=== PATIENT | male | born 1965 | race Caucasian/White ===

== ENCOUNTER → 2020-12-07 10:16 | Outpatient (CLI) | payer OTHER, SELFPAY | PROVIDERS: Visit Provider Internal Medicine Gastroenterology | DX: Z01.812 Encounter for preprocedural laboratory examination (principal); Z11.52 Encounter for screening for COVID-19; Z12.11 Encounter for screening for malignant neoplasm of colon | CPT/HCPCS: U0003 ==

== ENCOUNTER 2020-12-09 10:15 | Day surgery (SDC) | payer OTHER, SELFPAY ==
[2020-11-29 10:37] VITALS: BMI 26.4
[2020-12-09] VITALS (8 sets, daily range): BP systolic 97–140; BP diastolic 63–89; PULSE 94–109; RESP 18–20; TEMP 36.3–37.1; O2SAT 97–99
--- NOTE | 2020-12-09 10:58 | HMH.ANESCL ---
[facility] Anesthesia Checklist - Patient Identification Patient Identification: Arm Band - Structural Data Admitted From: Home Planned Operative Procedure/s: Colonoscopy Consent for Planned Operative Procedure(s) Verified: Yes - NPO Status Verified Time NPO: 00:00 - Airway Assessment C-Spine Mobility Assessed: Yes TMJ Mobility Assessed: Yes Dentition: Dentures-good fit - Neurological Assessment Level of Consciousness: Awake Hx Seizures: No Numbness or tingling in extremities: No - Anesthesia Plan Anesthesia Risk discussed: Yes Anesthesia Plan: Verified ASA Class: II Anesthesia Type: MAC [facility] History I have reviewed the patient's past medical history: Yes Medical History: Denies:: Cancer, Diabetes Mellitus Type 1, Diabetes Mellitus Type 2, Internal Pacemaker, MRSA *Have you ever received a pneumonia vaccine?: No *Have you received a flu vaccine this season?: No Anesthesia experience/problems:: None Laterality Cases: Bilateral: Tonsillectomy Other Surgeries: No: Pacemaker Amputation: No Fractures: No - *Social History Last grade of school completed: Some college Smoking Status: Current every day smoker Tobacco Type: cigarettes # Packs/Day (cigarettes): 1 Alcohol Intake: current Alcohol Intake Frequency:: holidays/special occasions only Substance Use Type: marijuana *Occupational Status:: employed Housing: house *Travel in the last 8 weeks: None Family Hx:: Adopted
--- NOTE | 2020-12-09 11:53 | HMH.PROC ---
[facility] Procedure Note Procedure Note:: Colonoscopy Procedure Report: Colonoscopy Endoscopist: Avni Herndon II, MD Referring physician: CHAU Riley Date of Procedure: December 09, 2020 Equipment: Olympus 190 variable stiffness pediatric colonoscope Sedation: MAC sedation Indication: Mr. Gonzalez is a 55-year-old gentleman who is here for diagnostic colonoscopy. He has had chronic longstanding constipation. More recently he has had episodic diverticulitis with some right-sided abdominal pain. He does have some intermittent but seldom lower abdominal pain. He also notes seldom hemorrhoidal bleeding. He reports no weight loss or family history of colon cancer. He does not know his family history since he is adopted. This is his first colonoscopy. Procedure: Prior to the procedure, a history and physical exam was performed, and patient's medications and allergies were reviewed. The risks, benefits and alternatives of the sedation and procedure were discussed with the patient. All questions were answered and informed consent was obtained. The patient was brought to the procedure room. Patient identification and proposed procedure were verified by the physician and the nurse. The patient was placed in a left lateral decubitus position and the scope was passed under direct vision. Throughout the procedure, the patient's blood pressure, pulse, and oxygen saturations were monitored continuously. The colonoscopy was accomplished without difficulty. The patient tolerated the procedure well. Findings: On digital rectal examination there was normal rectal tone. There were no external hemorrhoids. The prostate was 2+, smooth, soft, symmetric without nodules. The colonoscope was introduced through the anal canal to the rectum and advanced to the cecum. The ileocecal valve and appendiceal orifice were identified. The scope was advanced a short distance into the ileum which appeared grossly normal. The scope was then withdrawn into the colon. There were extensively scattered diverticuli throughout the colon but more predominantly in the descending and sigmoid colon. There were no other mucosal abnormalities identified. The rectum itself was normal. Upon retroflexion within the rectum there were grade 2 internal hemorrhoids. The preparation was fair throughout with Lawrence Preparation Score of 7 out of 9. The cecal time was 10 minutes. Impression: 1. Pandiverticulosis 2. Grade 2 internal hemorrhoids Plan: I would encourage dietary measures and fiber bowel regimen on a long-term daily maintenance basis. The patient will not require surveillance colonoscopy again for 10 years by ACS guidelines.
== END 2020-12-09 12:44 | disposition home or self-care (01) ==
LOC: OUTP 10:19
PROVIDERS: PCP Nurse Practitioner Family; Visit Provider Internal Medicine Gastroenterology
PROC: 0DJD8ZZ Inspection of Lower Intestinal Tract, Via Natural or Artificial Opening Endoscopic (ICD-10-PCS; CPT 45378; principal; 2020-12-09 11:30)
DX: K57.32 Diverticulitis of large intestine without perforation or abscess without bleeding (principal); K64.1 Second degree hemorrhoids; Z72.0 Tobacco use; J44.9 Chronic obstructive pulmonary disease, unspecified; Z79.82 Long term (current) use of aspirin
CPT/HCPCS: 45378; J2704

== ENCOUNTER 2021-03-16 09:38 | Outpatient (CLI) | payer OTHER, SELFPAY ==
[2021-03-16] VITALS (9 sets, daily range): BP systolic 128–144; BP diastolic 70–90; PULSE 78–113; RESP 14–16; TEMP 36.7–36.8; O2SAT 95–98
== END 2021-03-16 12:35 | disposition home or self-care (01) ==
PROVIDERS: PCP Nurse Practitioner Family; Visit Provider Nurse Practitioner Family
DX: U07.1 COVID-19 (principal); Z23 Encounter for immunization
CPT/HCPCS: 96365

== ENCOUNTER → 2022-05-21 13:59 | Outpatient (CLI) | payer OTHER, SELFPAY ==
[2022-05-21 14:27] LABS: Basophils # 0.1 K/mm3 (0-0.2); Basophils % 1.4 % (0.1-2.0); Eosinophils # 0.4 K/mm3 (0.0-0.4); Eosinophils % 3.7 % (0.1-12.0); Hematocrit 48.4 % (42.0-52.0); Hemoglobin 16.1 g/dL (14.1-18.0); Lymphocytes # 4.3 K/mm3 (0.7-4.5); Mean Corpuscular HGB Conc 33.3 g/dL (31.8-35.4); Mean Corpuscular Hemoglobin 29.9 pg (27.0-31.2); Mean Platelet Volume 9.3 fl (7.4-10.4); Monocytes # 0.6 K/mm3 (0.1-1.0); Monocytes % 6.2 % (1.7-9.3); Neutrophils # 4.6 K/mm3 (1.8-7.8); Neutrophils % 45.6 % (37.0-80.0); Platelet Count 224 K/mm3 (142-424); Red Blood Count 5.38 M/mm3 (4.60-6.20); Red Cell Distribution Width 14.2 % (11.5-17.5)
[2022-05-30 07:15] LABS: D001-IgE D pteronyssinus <0.10 kU/L (Class 0); D002-IgE D farinae <0.10 kU/L (Class 0); E001-IgE Cat Dander <0.10 kU/L (Class 0); E005-IgE Dog Dander <0.10 kU/L (Class 0); E072-IgE Mouse Urine <0.10 kU/L (Class 0); G002-IgE Bermuda Grass 0.15 kU/L (Class 0/I); G006-IgE Timothy Grass 0.12 kU/L (Class 0/I); I006-IgE Cockroach, German 0.46 kU/L (Class I); Immunoglobulin E, Total 76 IU/mL (6-495); M001-IgE Penicillium chrysogen <0.10 kU/L (Class 0); M002-IgE Cladosporium herbarum <0.10 kU/L (Class 0); M003-IgE Aspergillus fumigatus <0.10 kU/L (Class 0); M006-IgE Alternaria alternata <0.10 kU/L (Class 0); T001-IgE Maple/Box Elder <0.10 kU/L (Class 0); T003-IgE Common Silver Birch <0.10 kU/L (Class 0); T006-IgE Cedar, Mountain <0.10 kU/L (Class 0); T007-IgE Oak, White 0.12 kU/L (Class 0/I); T010-IgE Walnut 0.12 kU/L (Class 0/I); T011-IgE Maple Leaf Sycamore 0.13 kU/L (Class 0/I); T014-IgE Cottonwood <0.10 kU/L (Class 0); T015-IgE Ash, White <0.10 kU/L (Class 0); T022-IgE Pecan, Hickory <0.10 kU/L (Class 0); T070-IgE White Mulberry <0.10 kU/L (Class 0); W001-IgE Ragweed, Short 0.15 kU/L (Class 0/I); W011-IgE Thistle, Russian 0.26 kU/L (Class 0/I); W014-IgE Pigweed, Common 0.13 kU/L (Class 0/I); W018-IgE Sheep Sorrel 0.16 kU/L (Class 0/I)
== END ==
PROVIDERS: PCP Nurse Practitioner Family; Visit Provider Internal Medicine Pulmonary Disease
DX: J45.909 Unspecified asthma, uncomplicated (principal); J30.9 Allergic rhinitis, unspecified
CPT/HCPCS: 36415; 82785; 85025; 86003

== ENCOUNTER → 2022-06-18 12:38 | Outpatient (CLI) | payer OTHER, SELFPAY ==
--- NOTE | 2022-06-18 13:50 | PC.NURSE ---
PFT and 6 Minute Walk test completed without incident. Pt given Albuterol 0.083% given via HHN, per protocol, Pt tolerated tx well.
== END ==
PROVIDERS: PCP Nurse Practitioner Family; Visit Provider Internal Medicine Pulmonary Disease
DX: R06.09 Other forms of dyspnea (principal)
CPT/HCPCS: 94060; 94618; 94726; 94729

== ENCOUNTER → 2023-02-04 10:30 | Outpatient (CLI) | payer OTHER, SELFPAY ==
--- NOTE | 2023-02-04 10:30 | CT_ITS ---
FINAL REPORT CLINICAL HISTORY: lung cancer screening current smoker 1ppd x 45 years COMPARISON: 12/12/2021 FINDINGS: CT CHEST LOW DOSE SCREENING HISTORY: Screening exam for lung cancer. 57-year-old male, Current smoker, 45 pack year smoking history DOSE: CTDIvol: 2.9 mGy, DLP: 117.77 mGy*cm COMPARISON: 12/12/2021. TECHNIQUE: Axial CT without IV contrast administration using low dose protocol FINDINGS: No acute lung disease is present . No pulmonary lesions are seen suspicious for neoplasm. Moderate coronary artery calcifications are present. There are mild changes of emphysema and mild scarring bilaterally. There are multiple calcified granulomas identified. There is a 4 mm right lower lobe nodule, seen in axial image #53, stable. There is a 2 mm right lower lobe nodule, seen in image #58, also stable. There is a third 3 mm left lower lung field nodule, seen in image #58. No pleural or pericardial effusion is seen . No adenopathy or mass lesion is present . IMPRESSION: Multiple small less than 5 mm in size pulmonary nodules as described, all stable since the prior CT of December 2021. Moderate coronary artery calcifications. LUNG RADS CATEGORY 2 RECOMMENDATION: 12 month LDCT follow up Reviewed, Interpreted and Dictated by Richard Torres III, MD Transcribed by Gladys De Souza Authenticated and . [facility]
== END ==
PROVIDERS: PCP Nurse Practitioner Family; Visit Provider Internal Medicine Pulmonary Disease
DX: F17.210 Nicotine dependence, cigarettes, uncomplicated (principal)
CPT/HCPCS: 71271

== ENCOUNTER 2023-09-26 09:57 | Outpatient (CLI) | payer OTHER, SELFPAY ==
--- NOTE | 2023-09-26 09:57 | CT_ITS ---
FINAL REPORT TECHNIQUE: Axial CT images were performed from the lung bases through the iliac crests. Coronal and sagittal reformats were submitted.This study was performed with techniques to keep radiation doses as low as reasonably achievable (ALARA). Individualized dose reduction techniques using automated exposure control or adjustment of mA and/or kV according to the patient's size were employed. CLINICAL HISTORY: AAA COMPARISON: None FINDINGS: Exam is limited without the benefit of IV contrast. ABDOMEN: The lung bases are clear. The liver parenchyma is homogeneous. The gallbladder has been surgically resected. The spleen, pancreas, and adrenals are unremarkable. There is no evidence of nephrolithiasis or hydronephrosis. There is no mass or adenopathy. There is moderate diffuse plaque present in the abdominal aorta. The abdominal aorta measures up to 28 mm in greatest diameter, which is within normal limits. IMPRESSION: No evidence of abdominal aortic aneurysm. Abdominal aorta is within normal limits of size. Moderate plaque is present. Otherwise unremarkable CT of the upper abdomen. Reviewed, Interpreted and Dictated by Lee Ann Fontenot MD Transcribed by Gladys De Souza Authenticated and [facility]
--- NOTE | 2023-09-26 11:25 | CA_ITS ---
APPROVED REPORT EXAM: Comprehensive 2D, Doppler, and color-flow Echocardiogram Chin Strap Maker: Debbie Moore CRT Ht: 6 ft 1 in Wt: 212lbs BSA: 2.21 BP: 138/84 mmHg Indications: Chest Pain, COPD, AAA, smoker 2D Dimensions LA Volume 25.70 mL LA Volume Index 11.40 mL/m2 (M/F) 16-34 M-Mode Dimensions RVDd 2.77 cm (0.9-2.6) LA Diam 2.99 cm (1.9-4.0) LVDd 4.17 cm (3.5-5.7) LVDs 2.99 cm (3.5-5.7) IVSd 1.57 cm (0.6-1.1) PWd 1.02 cm (0.6-1.1) EF (Teich) 55.10% FS 28.30% EDV (Teich) 77.30 mL TAPSE 2.50 (<1.7) ESV (Teich) 34.70 mL LV Diastology E Decel Time 180 (160-240 msec) E/A Ratio 0.79 MED A' 14.00 cm/s LAT A' 11.00 cm/s Aortic Valve AO Peak GR. 6.80 mmHg Mitral Valve MV A Velocity 90.0 (40-130 cm/s) E/A Ratio 0.79 Pulmonary Valve PV Peak Velocity 94.0 (50-150 cm/s) Tricuspid Valve TR P. Velocity 183.00 cm/s RAP Estimate 10.00 mmHg RVSP 23.30 mmHg Left Ventricle The left ventricle is normal size. The left ventricular systolic function is normal. The left ventricular ejection fraction is within the normal range. There is normal left ventricular wall thickness. There is normal LV segmental wall motion. The left ventricular diastolic function is normal. LVEF is 55%. Right Ventricle The right ventricle is normal size. The right ventricular systolic function is normal. Atria The left atrium size is normal. The right atrium size is normal. There is no Doppler evidence of interatrial shunt. Aortic Valve The aortic valve opens well. There is no aortic valvular stenosis. No aortic regurgitation is present. Mitral Valve The mitral valve is normal in structure. No evidence of mitral valve stenosis. There is no mitral valve regurgitation noted. Tricuspid Valve The tricuspid valve leaflets are thin and pliable. Trace tricuspid regurgitation. There is insufficient TR jet to estimate RVSP. Pulmonic Valve The pulmonic valve is not well-visualized. Great Vessels The aortic root is not well-visualized. IVC is normal in size and collapses >50% with inspiration. Pericardium There is no pericardial effusion. Other Information Study Quality: Technically Difficult Conclusion Technically difficult study due to poor acoustic windows. Normal biventricular systolic function. No significant valvular stenosis or regurgitation. Electronically signed by : Joanne Lackey MD 09/30/2023 13:11:53
== END 2023-09-26 23:59 | disposition home or self-care (01) ==
LOC: RAD 09:57
PROVIDERS: PCP Nurse Practitioner Family; Visit Provider Physician Assistant
DX: I25.10 Atherosclerotic heart disease of native coronary artery without angina pectoris (principal); R94.31 Abnormal electrocardiogram [ECG] [EKG]; R06.09 Other forms of dyspnea; R07.9 Chest pain, unspecified; I71.40 Abdominal aortic aneurysm, without rupture, unspecified; F17.210 Nicotine dependence, cigarettes, uncomplicated
CPT/HCPCS: 74150; 93306

== ENCOUNTER 2023-12-10 08:50 | Outpatient (CLI) | payer OTHER, SELFPAY ==
[2023-12-10] VITALS (7 sets, daily range): BP systolic 101–145; BP diastolic 56–108; PULSE 71–106; RESP 16–19; TEMP 36.6–36.7; O2SAT 95–98; BMI 25.4
--- NOTE | 2023-12-10 09:00 | CT_ITS ---
APPROVED REPORT Geriatric Case Manager: CLINICAL INDICATION Chest Pain TECHNIQUE Image Acquisition: A 128 slice MDCT scanner (Contura View) was used for data acquisition. A noncontrast coronary calcium scan was performed. A CT attenuation threshold of 130 Hounsfield units (HU) was used for the detection of calcium in contiguous voxels of 1 sq mm in area to be counted as individual lesions. Bolus tracking in the ascending aorta with a threshold of 180 HU was performed. Immediately afterwards, ECG synchronized cardiac CT was then performed from the cardiac base to apex using retrospective gating with ECG tube current modulation. A total of 85 mL of Isovue 370 mg/mL contrast medium was administered at 5 mL/sec followed by a saline flush using a biphasic injection protocol. A tube voltage of 120 KVp was used. The patient received the following medications prior to the cardiac CT. 150 mg of oral metoprolol 5 mg of intravenous metoprolol 15 mg of oral ivabradine 0.8 mg of sublingual nitroglycerin The average heart rate at the time of acquisition was 69 bpm and regular. Image Reconstruction Transaxial images were reconstructed at 0.67 mm slide thickness. Data was reviewed interactively on an advanced workstation capable of 2 and 3-dimensional displays in all conventional reconstruction formats, including multiplanar reformations, maximum intensity projections, curved multiplanar reformations, and volume rendered reconstructions. When applicable, selected routine images describing the relevant coronary anatomy and pathology were saved and sent to PACS. Complications None Technical Quality Overall image quality was good. Coronary artery opacification was adequate. Total DLP (Dose-Length Product) is 1138.9 mGy-cm. The reported value represents the total of one or more individual components during the CT acquisition of this date and at this time, and as such, the same value may appear in more than one CT report depending on the interpreting/reporting physicians. COMPARISON None FINDINGS CT Coronary Calcium Scoring LMA (Left Main Artery) = 5 LAD (Left Anterior Descending) = 383 LCX (Left Coronary Circumflex) = 90 RCA (Right Coronary Artery) = 0 Total Calcium Score = 478 using the AJ-130 method. The observed calcium score of 478 is at 97th percentile for subjects of the same age, sex, and race/ethnicity. The interpretation of the calcium heart score is based on the following continuum*: 0 = no calcified plaque detected (risk of coronary artery disease is very low ??? less than 5%) 1-10 = calcium detected in extremely minimal levels (risk of coronary diseases is still low ??? less than 10%) 11-100 = mild levels of plaque detected with certainty (mild or minimal narrowing of heart arteries is likely) 101-400 = definite,at least moderate levels of plaque detected (relatively high risk of a heart attack within 3-5 years) >401-999 = extensive levels of plaque detected (high risk of heart attack, high levels of vascular disease are present, high likelihood of at least one significant coronary narrowing) *The calcium heart score quantifies the burden of coronary calcification/plaque in the coronary arteries. The calcium heart score is not able to evaluate the presence or burden of non-calcified (i.e. soft) plaque. There is no identifiable calcification in the aortic valve, mitral annulus or mitral valve, pericardium, or myocardium. Coronary CT Angiography The coronary arterial system is left dominant. Quantitative Stenosis Grading: Left Main (LM): The left main originates normally from the left sinus of Valsalva. The LM bifurcates into the left anterior descending artery and left circumflex artery. There is calcified plaque in the distal LM, with no evidence of stenosis. Left Anterior Descending (LAD) and Diagonal Branches: The LAD gives off 3 diagonal branch(es). There is mixed calcified/noncalcified plaque in the proximal and mid LAD segments, with up to 70-90% luminal stenosis noted approximately. There is no evidence of LAD-myocardial bridge. Left Circumflex (LCX) and Obtuse Marginals (OM): The LCX gives off 2 Obtuse Marginal (OM) branch(es). There is focal calcification noted in the proximal and mid LCx segments with up to 50-70% luminal stenosis in the midsegment. Right Coronary Artery (RCA): The RCA originates normally from the right sinus of Valsalva. The RCA and its branches are patent with no evidence of atherosclerosis. Non-Coronary Cardiac Findings: Analysis of the left ventricular (LV) structure and function was performed after 3-D reconstruction of the LV from axial images, with user-corrected automatic contouring for assessment of LV volumes and user-defined reconstruction from oblique planes for measurement of 3-D cardiac structure and function. -The left ventricle systolic function is normal. -There is no left atrial appendage filling defect. Two right pulmonary veins and two left pulmonary veins drain normally into the left atrium. -No pericardial thickening or calcification. -Central and branch pulmonary arteries in the [id number] are unremarkable. -Thoracic aorta within the visualized thoracic aortic-branches in the [id number] is unremarkable. Extracardiac Structures No significant extra-cardiac findings. Note, however, that this study is focused on the cardiac findings. IMPRESSION -Presence of coronary calcification with an Agatston score = 478 using the AJ-130 method. -The observed calcium score of 478 is at 97th percentile for subjects of the same age, sex, and race/ethnicity. -Multivessel atherosclerotic disease, with evidence of possible significant flow-limiting atherosclerosis of the proximal LAD segment. -CAD-RADS 4A. Management recommendations per ACC/AHA guidelines*, as clinically appropriate. *Recommendations: CAD RADS 0: Reassurance. Consider non-atherosclerotic causes of chest pain. CAD RADS 1: Consider non-atherosclerotic causes of chest pain. Consider preventive therapy and risk factor modification. CAD RADS 2: Consider non-atherosclerotic causes of chest pain. Consider preventive therapy and risk factor modification, particularly for patients with nonobstructive plaque in multiple segments. CAD RADS 3: Consider further functional testing. Consider symptom-guided anti-ischemic and preventive pharmacotherapy as well as risk factor modification per published guideline statements. CAD RADS 4A: Consider further functional testing or invasive coronary angiography with revascularization per published guideline statements. Consider symptom-guided anti-ischemic and preventive pharmacotherapy as well as risk factor modification per published guideline statements. CAD RADS 4B: Invasive coronary angiography recommended with revascularization per published guideline statements. Consider symptom-guided anti-ischemic and preventive pharmacotherapy as well as risk factor modification per published guideline statements. CAD RADS 5: Consider invasive angiography and/or viability assessment with revascularization per published guideline statements. Consider symptom-guided anti-ischemic and preventive pharmacotherapy as well as risk factor modification per published guideline statements. CRITICAL RESULT None COMMUNICATION Per this written report The coronary and cardiac findings of this CCTA were reviewed, reported, and signed by Felix Lackey MD (Linux Consultant) Conclusion Electronically signed by : Joanne Lackey MD 12/12/2023 12:35:36
[2023-12-10] MEDS: METOPROLOL TARTRATE 50MG TABLET *IVABRADINE+METOPROLOL REGIMINE 75 MG PO ×2 (09:39→10:36)
[2023-12-10] MEDS: IVABRADINE HCL 7.5MG TABLET *IVABRADINE+METOPROLOL REGIMINE 15 MG PO (09:39)
[2023-12-10 09:48] LABS: Chloride 108 mmol/L (98-107); Sodium 141 mmol/L (136-145)
[2023-12-10 09:51] LABS: Blood Urea Nitrogen 10 mg/dl (9-20); Calcium 9.2 mg/dl (8.4-10.2); Carbon Dioxide 30 mmol/L (22.0-30.0); Creatinine Clearance Estimated 123 mL/min (50-200); Estimated Glomerular Filt Rate 99 ml/min (>60); GFR (African American) 120 ML/MIN (>60); Glucose 97 mg/dl (74-100)
[2023-12-10] MEDS: NITROGLYCERIN 0.4MG SL TABLET 0.8 MG SL (11:38)
[2023-12-10] MEDS: METOPROLOL TARTRATE 5MG/5ML VIAL *IVABRADINE+METOPROLOL REGIMINE 5 MG IV (11:38)
[2023-12-10] MEDS: IOPAMIDOL-370 (76%);100ML BOTTLE 85 ML IV (11:54)
[2023-12-10] MEDS: SODIUM CHLORIDE 0.9% 10ML SYR (RAD ONLY) 10 ML IV (11:54)
[2023-12-10] MEDS: 0.9 % SODIUM CHLORIDE 50 ML VIAL IV (11:54)
== END 2023-12-10 12:10 | disposition home or self-care (01) ==
PROVIDERS: PCP Nurse Practitioner Family; Visit Provider Physician Assistant
DX: I25.10 Atherosclerotic heart disease of native coronary artery without angina pectoris (principal); R94.31 Abnormal electrocardiogram [ECG] [EKG]; R06.09 Other forms of dyspnea; R07.9 Chest pain, unspecified; I71.40 Abdominal aortic aneurysm, without rupture, unspecified
CPT/HCPCS: 75574; 80048; Q9967

== ENCOUNTER 2023-12-24 10:23 | Outpatient (CLI) | payer OTHER, SELFPAY ==
--- NOTE | 2023-12-24 10:27 | XR_ITS ---
FINAL REPORT CLINICAL HISTORY: Left hip pain COMPARISON: None FINDINGS: LEFT HIP: Two views of the left hip demonstrate no acute fracture or dislocation. The joint spaces appear normal. The visualized bony structures are well aligned. No soft tissue abnormality is seen. IMPRESSION: No acute bony abnormality. Reviewed, Interpreted and Dictated by Kamran Cates MD Transcribed by Gladys De Souza Authenticated and [facility]
[2023-12-24 13:16] LABS: Basophils # 0.1 K/mm3 (0-0.2); Basophils % 0.8 % (0.1-2.0); Eosinophils # 0.4 K/mm3 (0.0-0.4); Eosinophils % 3.9 % (0.1-12.0); Hematocrit 49.4 % (42.0-52.0); Hemoglobin 15.9 g/dL (14.1-18.0); Lymphocytes # 3.8 K/mm3 (0.7-4.5); Lymphocytes % 36.8 % (10-50); Mean Corpuscular HGB Conc 32.2 g/dL (31.8-35.4); Mean Corpuscular Hemoglobin 30.7 pg (27.0-31.2); Mean Corpuscular Volume 95.3 fl (80-94); Mean Platelet Volume 10.6 fl (7.4-10.4); Monocytes # 0.7 K/mm3 (0.1-1.0); Monocytes % 7.2 % (1.7-9.3); Neutrophils # 5.3 K/mm3 (1.8-7.8); Neutrophils % 51.4 % (37.0-80.0); Platelet Count 219 K/mm3 (142-424); Red Blood Count 5.18 M/mm3 (4.60-6.20); Red Cell Distribution Width 13.5 % (11.5-17.5); White Blood Count 10.3 K/mm3 (4.8-10.8)
[2023-12-24 13:50] LABS: Alanine Aminotransferase 21 U/L (12-78); Albumin Level 4.5 g/dl (3.5-5.0); Albumin/Globulin Ratio 1.7 (1.1-1.8); Alkaline Phosphatase 91 U/L (38-126); Anion Gap 8.8 mEq/L (5-15); Aspartate Amino Transferase 25 U/L (17-59); Bilirubin,Total 0.7 mg/dl (0.2-1.3); Blood Urea Nitrogen 14 mg/dl (9-20); Calcium 9.3 mg/dl (8.4-10.2); Carbon Dioxide 28 mmol/L (22.0-30.0); Chloride 108 mmol/L (98-107); Cholesterol 144 mg/dl (140-200); Estimated Glomerular Filt Rate 99 ml/min (>60); GFR (African American) 120 ML/MIN (>60); Globulin 2.6 g/dL (1.3-3.2); Glucose 71 mg/dl (74-100); HDL Cholesterol 36 mg/dl (40-60); Potassium 4.8 mmoL/L (3.5-5.1); Sodium 140 mmol/L (136-145); Total Protein,Serum 7.1 g/dl (6.3-8.2); Triglycerides 136 mg/dl (30-150); VLDL Cholesterol 27 mg/dL (0-40)
[2023-12-24 14:01] LABS: Direct LDL Cholesterol 84.02 mg/dL (100-129)
[2023-12-24 14:06] LABS: 25-OH Vitamin D, Total 33.7 ng/mL (30-100); Free T4 (Free Thyroxine) 1.25 ng/dl (0.78-2.19)
[2023-12-24 14:18] LABS: Thyroid Stimulating Hormone 1.66 uIU/mL (0.465-4.68)
[2023-12-24 14:54] LABS: Hemoglobin A1C 5.8 % (4.0-6.0)
== END 2023-12-24 23:59 | disposition home or self-care (01) ==
LOC: RAD 10:24
PROVIDERS: PCP Internal Medicine; Visit Provider Internal Medicine
DX: M25.552 Pain in left hip (principal); I10 Essential (primary) hypertension; J44.9 Chronic obstructive pulmonary disease, unspecified; E78.5 Hyperlipidemia, unspecified; Z13.1 Encounter for screening for diabetes mellitus; Z13.29 Encounter for screening for other suspected endocrine disorder; Z13.220 Encounter for screening for lipoid disorders; Z13.21 Encounter for screening for nutritional disorder
CPT/HCPCS: 73502; 80050; 80053; 80061; 82306; 83036; 84439; 84443; 85025

== ENCOUNTER 2024-01-14 09:11 | Day surgery (SDC) | payer OTHER, SELFPAY ==
[2024-01-14] VITALS (11 sets, daily range): BP systolic 95–179; BP diastolic 59–104; PULSE 79–102; RESP 18–20; TEMP 36.9; O2SAT 92–98; BMI 25.6
--- NOTE | 2024-01-14 07:20 | IR_ITS ---
APPROVED REPORT Patient Location: Outpatient PROCEDURES Left heart catheterization Left ventriculogram Selective coronary angiogram INDICATION Abnormal CCTA Informed consent was obtained prior to the procedure. COMPLICATIONS none Estimated Blood Loss: less than 10ml TECHNIQUE One percent lidocaine used to anesthetize the right anterior aspect of the wrist. The right radial artery was accessed via the Seldinger technique. A 6 Slovak sheath was placed in the right radial artery. 2.5 mg of Verapamil, 800 mcg of nitroglycerin, 1mg Lidocaine and 5000 U Heparin were given through the arterial sheath. The papa catheter was also used to perform selective coronary angiogram. At the end of the procedure the sheath was removed good hemostasis was achieved using Traclet band, patient was transferred to the postop holding area in stable condition. ANGIOGRAPHIC RESULTS The left main artery Normal The left anterior descending artery Has proximal 10 to 20% stenosis with mid vessel 30 and 40% calcified concentric stenoses. The remaining LAD is widely patent The circumflex artery Is large and dominant and has proximal eccentric 30 to 40% calcified stenosis with mid vessel 30% stenosis and a distal 30% calcified stenosis The right coronary artery Nondominant normal The VAUGHAN ventriculogram reveals Not performed The left ventricular end-diastolic pressure Not measured IMPRESSION Moderate disease in the mid LAD as described above Moderate disease in the proximal and mid dominant circumflex artery as described above PLAN 1. Recommend medical management 2. LDL less than 55 to be achieved with high intensity statin 3. Avoidance of tobacco products 4. Risk factor modification Electronically signed by : Stas Garcaí MD 01/14/2024 13:23:06
[2024-01-14 09:41] LABS: Basophils # 0.1 K/mm3 (0-0.2); Eosinophils # 0.4 K/mm3 (0.0-0.4); Hematocrit 46.3 % (42.0-52.0); Lymphocytes # 2.7 K/mm3 (0.7-4.5); Lymphocytes % 27.5 % (10-50); Mean Corpuscular HGB Conc 34.5 g/dL (31.8-35.4); Mean Corpuscular Volume 89.9 fl (80-94); Mean Platelet Volume 9.4 fl (7.4-10.4); Monocytes # 0.6 K/mm3 (0.1-1.0); Neutrophils # 6.1 K/mm3 (1.8-7.8); Neutrophils % 61.4 % (37.0-80.0); Platelet Count 195 K/mm3 (142-424); Red Blood Count 5.15 M/mm3 (4.60-6.20)
[2024-01-14 09:46] LABS: Chloride 104 mmol/L (98-107)
[2024-01-14 09:47] LABS: Sodium 141 mmol/L (136-145)
[2024-01-14 09:50] LABS: Blood Urea Nitrogen 11 mg/dl (9-20); Calcium 9.4 mg/dl (8.4-10.2); Carbon Dioxide 29 mmol/L (22.0-30.0); Creatinine Clearance Estimated 124 mL/min (50-200); Estimated Glomerular Filt Rate 99 ml/min (>60); GFR (African American) 120 ML/MIN (>60); Glucose 104 mg/dl (74-100)
[2024-01-14] MEDS: diphenhydrAMINE 50MG/ML VIAL 50 MG IV (11:42)
[2024-01-14] MEDS: HEPARIN 1,000 UNITS/ML 10ML VIAL (CATH LAB) 10000 UNIT IV (11:42)
[2024-01-14] MEDS: LIDOCAINE 1% 10ML MDV 20 ML IJ (11:42)
[2024-01-14] MEDS: VERAPAMIL 2.5MG/ML 2ML VIAL 2.5 MG IV (11:42)
[2024-01-14] MEDS: NITROGLYCERIN 800MCG/8ML SYR (CATH LAB) 800 MCG IA (11:43)
[2024-01-14] MEDS: 0.9 % SODIUM CHLORIDE 500 ML 25 ML IV (11:43)
[2024-01-14] MEDS: HEPARIN 1,000 UNITS/500ML NS (CATH LAB) 3000 UNIT IV (11:43)
[2024-01-14] MEDS: FENTANYL 100MCG/2ML VIAL 50 MCG IV (12:00)
[2024-01-14] MEDS: MIDAZOLAM 2MG/2ML VIAL 1 MG IV (12:00)
[2024-01-14] MEDS: PROPOFOL 10MG/ML 20ML VIAL 20 MG IV (12:01)
[2024-01-14] MEDS: IOPAMIDOL-370 (76%);100ML BOTTLE 60 ML IV (13:38)
== END 2024-01-14 14:18 | disposition home or self-care (01) ==
PROVIDERS: PCP Internal Medicine; Visit Provider Internal Medicine
DX: R93.1 Abnormal findings on diagnostic imaging of heart and coronary circulation (principal); R06.02 Shortness of breath; Z79.899 Other long term (current) drug therapy; F17.210 Nicotine dependence, cigarettes, uncomplicated; I25.10 Atherosclerotic heart disease of native coronary artery without angina pectoris; J44.9 Chronic obstructive pulmonary disease, unspecified; I10 Essential (primary) hypertension
CPT/HCPCS: 80048; 85025; 93454; 99152; C1725; C1760; C1769; J1200; J1644; J2250; J3010; Q9967

== ENCOUNTER 2024-02-12 07:02 | Outpatient (CLI) | payer OTHER, SELFPAY ==
--- NOTE | 2024-02-12 07:06 | CT_ITS ---
FINAL REPORT TECHNIQUE: Thin section axial images were obtained from the lung apices to the upper abdomen by computed tomography. Reformatted images were obtained and reviewed. This study was performed with techniques to keep radiation doses al low as reasonably achievable (ALARA). Individualized dose reduction techniques using automated exposure control or adjustment of mA and/or kV according to the patient's size were employed. CLINICAL HISTORY: smoker 1 ppd x 45 COMPARISON: 02/04/2023 FINDINGS: CHEST CT LOW DOSE 58-year-old male, 74-sybb-egtp history, current smoker. CTDI vol (mGy): 2.9 DLP (mGy-cm): 114.11 There is no axillary adenopathy. There is no mediastinal or hilar mass or adenopathy. The heart is normal in size. There are severe left coronary artery calcifications present. There is no pericardial or pleural effusion. Multiple calcified granulomas are present. Lung window images demonstrate there are several small noncalcified nodules present, the largest in the right lower lobe measuring 4 mm in size, best seen on image #50 of series 3. This nodule is stable in size. There are several other noncalcified nodules identified, also stable. Limited images of the upper abdomen are unremarkable. IMPRESSION: Lung-RADS category 2S, the S designation for severe left coronary artery calcifications.. Recommend 12 month follow up low dose chest CT. Reviewed, Interpreted and Dictated by Richard Torres III, MD Transcribed by Gladys De Souza Authenticated and [facility]
== END 2024-02-12 23:59 | disposition home or self-care (01) ==
LOC: RAD 07:02
PROVIDERS: PCP Internal Medicine; Visit Provider Internal Medicine Pulmonary Disease
DX: F17.210 Nicotine dependence, cigarettes, uncomplicated (principal)
CPT/HCPCS: 71271

== ENCOUNTER 2024-05-05 10:51 | Outpatient (CLI) | payer OTHER, SELFPAY ==
--- NOTE | 2024-05-05 10:56 | US_ITS ---
FINAL REPORT TECHNIQUE: Ultrasound images of the testicles were obtained bilaterally. Color Doppler images were obtained. CLINICAL HISTORY: testicular mass COMPARISON: None FINDINGS: Arterial flow is identified bilaterally. There are tiny echogenic foci in the testicles probably due to microlithiasis. The right epididymis contains an echogenic nonshadowing focus. The left epididymis is unremarkable. There is an area noted inferior to the right testicle measuring 4 x 3 mm. This appears to be separate from the testicle and is of uncertain significance. There is a small right hydrocele. 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 Given the presence of microlithiasis, routine sonographic surveillance is recommended. 4 x 3 mm focus adjacent to the right testicle of uncertain significance. Recommend urologic follow-up. Small right hydrocele. Reviewed, Interpreted and Dictated by Kamran Cates MD Transcribed by Lexus Zhang Authenticated and [facility]
== END 2024-05-05 23:59 | disposition home or self-care (01) ==
LOC: RAD 10:53
PROVIDERS: PCP Internal Medicine; Visit Provider Internal Medicine
DX: N50.89 Other specified disorders of the male genital organs (principal)
CPT/HCPCS: 76870

== ENCOUNTER 2024-06-01 07:54 | Outpatient (CLI) | payer OTHER, SELFPAY ==
[2024-06-01 08:30] VITALS: PULSE 112; PULSE 114
[2024-06-01] MEDS: ALBUTEROL 0.083% 2.5 MG/3 ML NEB IH (08:30)
== END 2024-06-01 23:59 | disposition home or self-care (01) ==
LOC: RT 07:55
PROVIDERS: PCP Internal Medicine; Visit Provider Internal Medicine Pulmonary Disease
DX: R06.09 Other forms of dyspnea (principal)
CPT/HCPCS: 94060; 94618; 94640; J7613

== ENCOUNTER 2024-08-06 14:28 | Outpatient (CLI) | payer OTHER, SELFPAY ==
[2024-08-06 14:23] LABS: Basophils # 0.1 K/mm3 (0-0.2); Basophils % 0.7 % (0.1-2.0); Eosinophils # 0.4 Kmm3 (0.0-0.4); Eosinophils % 4.2 % (0.1-12.0); Hematocrit 43.9 % (42.0-52.0); Hemoglobin 14.5 g/dL (14.1-18.0); Lymphocytes # 3.2 K/mm3 (0.7-4.5); Lymphocytes % 32.1 % (10-50); Mean Corpuscular Hemoglobin 29.9 pg (27.0-31.2); Mean Corpuscular Volume 90.5 fl (80-94); Mean Platelet Volume 11.5 fl (7.4-10.4); Monocytes # 0.8 K/mm3 (0.1-1.0); Monocytes % 8.1 % (1.7-9.3); Neutrophils # 5.4 K/mm3 (1.8-7.8); Neutrophils % 54.6 % (37.0-80.0); Nucleated Red Blood Cells # 0 10^3/uL; Nucleated Red Blood Cells % 0 %; Platelet Count 238 K/mm3 (142-424); Red Blood Count 4.85 M/mm3 (4.60-6.20); Red Cell Distribution Width 13.3 % (11.5-17.5); Red Cell Distribution Width-SD 44.5 fL; White Blood Count 9.9 K/mm3 (4.8-10.8)
[2024-08-06 14:35] LABS: Hemoglobin A1C 5.6 % (4.0-6.0)
[2024-08-06 15:07] LABS: Chloride 109 mmol/L (98-107)
[2024-08-06 15:08] LABS: Albumin Level 4.5 g/dl (3.5-5.0); Potassium 4.6 mmoL/L (3.5-5.1); Sodium 142 mmol/L (136-145)
[2024-08-06 15:10] LABS: Alanine Aminotransferase 19 U/L (12-78); Anion Gap 12.6 mEq/L (5-15); Aspartate Amino Transferase 25 U/L (17-59); Blood Urea Nitrogen 10 mg/dl (9-20); Carbon Dioxide 25 mmol/L (22.0-30.0); Estimated Glomerular Filt Rate 99 ml/min (>60); GFR (African American) 120 ML/MIN (>60)
[2024-08-06 15:11] LABS: Albumin/Globulin Ratio 1.8 (1.1-1.8); Alkaline Phosphatase 108 U/L (38-126); Bilirubin,Total 0.7 mg/dl (0.2-1.3); Chol/HDL Ratio 4.4 (1-3.5); Cholesterol 133 mg/dl (140-200); Globulin 2.5 g/dL (1.3-3.2); Glucose 69 mg/dl (74-100); HDL Cholesterol 30 mg/dl (40-60); Triglycerides 198 mg/dl (30-150); VLDL Cholesterol 40 mg/dL (0-40)
[2024-08-06 15:23] LABS: Direct LDL Cholesterol 72.14 mg/dL (100-129)
[2024-08-06 15:29] LABS: Free T4 (Free Thyroxine) 1.21 ng/dl (0.78-2.19)
[2024-08-06 15:44] LABS: Thyroid Stimulating Hormone 2.18 uIU/mL (0.465-4.68)
[2024-08-06 15:51] LABS: HIV Combo NEGATIVE (Negative)
[2024-08-06 16:02] LABS: Hepatitis C Ab Qual. W/ RFX NEGATIVE (Negative)
== END 2024-08-06 23:59 | disposition home or self-care (01) ==
LOC: LAB.DROPOF 14:29
PROVIDERS: PCP Internal Medicine; Visit Provider Internal Medicine
DX: Z11.4 Encounter for screening for human immunodeficiency virus [HIV] (principal); Z13.29 Encounter for screening for other suspected endocrine disorder; Z13.1 Encounter for screening for diabetes mellitus; Z11.59 Encounter for screening for other viral diseases; Z13.220 Encounter for screening for lipoid disorders; I25.10 Atherosclerotic heart disease of native coronary artery without angina pectoris; I10 Essential (primary) hypertension; E78.5 Hyperlipidemia, unspecified; R73.03 Prediabetes; R53.83 Other fatigue; F17.200 Nicotine dependence, unspecified, uncomplicated
CPT/HCPCS: 80053; 80061; 83036; 84403; 84439; 84443; 85025; 86803; 87389

== ENCOUNTER 2024-11-04 14:40 | Outpatient (CLI) | payer OTHER, SELFPAY ==
--- OUTSIDE RECORDS SUMMARY | 2024-11-04 14:42 | XMS_ITS | Clinical Summary ---
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 1 Active busPIRone (BUSPAR) 10 MG tablet Take 10 mg by mouth 3 (Three) Times a Day. 1 Active fluorouracil (EFUDEX) 5 % cream 1 Active EPINEPHrine (EPIPEN) 0.3 MG/0.3ML solution auto-injector injection INJECT CONTENTS OF 1 PEN (0.3ML) INTRAMUSCUALLY NEEDED FOR ALLERGIC REACTION (WASP STING) 1 Active omeprazole (priLOSEC) 20 MG capsule Take 20 mg by mouth Daily. 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 Not on file Does Anyone Keep You from Co ntacting Others or Doint Things Outside the Home? Not on file 01/18/2023 Physical Sign of Abuse Present Not on file 1 Housing Stability Answer Date Recorded Current Living Arrangements Not on file 01/06 Potentially Unsafe Housing Conditions Not on kimberly e 01/18/2023 Family and Community Support Answer Nacho e Recorded Help with Day-to-Day Activities Not on file 01/18/2023 Lonely or Isolated Not on file 01/18/2023 Employment Answer Date Recorded Do you want help finding or keeping work or a vida b? Not on file 01/18/2023 Disabilities Answer Date Recorded Concentrating, Remembering, or Making Decisions Difficulty Not on file 01/18/2023 Doing Errands Independently Difficulty Not on fi le 01/18/2023 Education Answer Date Recorded Help with school or training? Not on file Preferred Language Not on file 01/18/2023 Sex and Gender Information Value Date Recorded Sex Assigned at Not on file Legal Sex Male 9:09 AM EDT Gender Identity Not on file Sexual Orientation Not on file Occupation Industry Job Start Date Job End Date Not on file Not on file Not on file Not on file Last Filed Vital Signs Vital Sign Reading Time Taken Comments Blood Pressure 140/70 11/07/2020 12:08 PM EDT Pulse 72 11/07/2020 12:08 PM EDT Temperature 36.6 C (97.8 F) 11/07/2020 12:08 PM EDT Respiratory Rate - - Oxygen Saturation 99% 11/07/2020 12:08 PM EDT Inhaled Oxygen Concentration - - Weight 92.2 kg (203 lb 3.2 oz) 11/07/2020 12:08 PM EDT Height 185.4 cm (6' 1 ) 11/07/2020 12:08 PM EDT Body Mass Index 26.81 11/07/2020 12:08 PM EDT Plan of Treatment Health Maintenance Due Date Last Done Comments Pneumococcal Vaccine 50+ (1 of 2 - PCV) 10/04/1983 TDAP/TD VACCINES (1 - Tdap) 10/04/1983 COLOGUARD 2009 COLON CANCER SCREENING 5 YEAR SIGMOIDOSCOPY 2009 COLONOSCOPY 2009 [address]CER SCREENING [address] COLONOGRAPHY 2009 FECAL OCCULT BLOOD TEST 2009 FIT Testing (1 year) 2009 ZOSTER VACCINE (1 of 2) 2014 ANNUAL PHYSICAL 10/24/2020 HEPATITIS C SCREENING 10/24/2020 COVID-19 Vaccine (2023- season) 2023 INFLUENZA VACCINE 01/06/2025 Insurance [employer] [facility] Care Teams Telephone Recorder Relationship Specialty Start Date End Date Anna Fragoso APRN [address] [place] [address] [place] [address] PCP - General Nurse Practitioner 10/20/20
--- OUTSIDE RECORDS SUMMARY | 2024-11-04 14:42 | XMS_ITS | Clinical Summary ---
Author Organization [facility] Address [address] [place] [address] Care Team Providers Care Cloud Systems Architect Name Role Phone Mega Maxwell MD Primary Care Provider [phone] Social History Tobacco Use Types Packs/Day Years Used Date Smoking Tobacco: Every Day Alcohol Use Standard Drinks/Week Comments Yes 0 (1 standard drink = 0.6 oz pure alcohol) Alcoholic Drinks/day: Consumes alcohol occasionally Sex and Gender Information Value Date Recorded Sex Assigned at Not on file Legal Sex Male 7:34 PM EDT Gender Identity Not on file Sexual Orientation Not on file Plan of Treatment Not on file Care Teams Cloud Systems Architect Relationship Specialty Start Date End Date Mega Maxwell MD [address] [place] [address] PCP - General 08/19/20
--- NOTE | 2024-11-04 15:00 | CT_ITS ---
FINAL REPORT TECHNIQUE: Thin section axial images were obtained from the lung apices through the upper abdomen without contrast. This study was performed with techniques to keep radiation doses as low as reasonably achievable (ALARA). Individualized dose reduction techniques using automated exposure control or adjustment of mA and/or kV according to the patient's size were employed. CLINICAL HISTORY: lung nodule seen on lung screening on 02/2024 COMPARISON: 02/12/2024 FINDINGS: There is no mediastinal, hilar, or axillary lymphadenopathy. No pleural or pericardial effusion. Stable coronary artery calcifications. There are changes of emphysema. Stable 4 mm nodule in the right lower lobe on series 2, image 54. New ground-glass and slightly irregular nodules in the posterior right upper lobe on series 4, images 41-45 are favored to be infectious or inflammatory. The largest measures 10 mm on image 43. There are also new reticulonodular opacities in the right middle lobe. Lungs are otherwise clear. Limited, unenhanced evaluation of the upper abdomen is without acute abnormality. There is no acute osseous abnormality. IMPRESSION: Stable right lower lobe pulmonary nodule. New ground-glass nodular opacities in the right upper lobe and reticulonodular opacities in the right middle lobe. Findings favor pneumonia. Consider 3 to six-month follow-up. Reviewed, Interpreted and Dictated by Genesis Bowling MD Transcribed by Zoie Gunn Authenticated and [facility]
== END 2024-11-04 23:59 | disposition home or self-care (01) ==
LOC: RAD 14:41
PROVIDERS: PCP Internal Medicine; Visit Provider Internal Medicine Pulmonary Disease
DX: R91.8 Other nonspecific abnormal finding of lung field (principal)
CPT/HCPCS: 71250